=== PATIENT | female | born 1975 | race Caucasian/White ===

== ENCOUNTER 2017-04-02 22:39 | Emergency (ER) | payer SELFPAY ==
[~2017-04-02] VITALS: Ht 160 cm; Wt 70.2 kg
[2017-04-02] MEDS ORDERED: THIAMINE 200 MG/2 ML VIAL. IV ONE (23:00)
[2017-04-02] MEDS ORDERED: IV NORMAL SALINE 1,000ML 1,000 ML ONE (23:00)
[2017-04-02] MEDS ORDERED: MVI, ADULT NO.4 WITH VIT K 10 ML, FOLIC ACID SYRINGE for ER 1 MG, THIAMINE 100 MG in IV... IV SCH ×4 (23:00)
[2017-04-02] MEDS ORDERED: FOLIC ACID 5 MG/ML SYRINGE for ER IV ONE (23:01)
[2017-04-02] MEDS ORDERED: MVI, ADULT NO.4 WITH VIT K 10 ML VIAL IV ONE (23:01)
[2017-04-02] MEDS ORDERED: ONDANSETRON PF 4 MG/2 ML VIAL. IV ONE (23:15)
[2017-04-02 23:20] LABS: BASO # 0.1 x10^3/uL (0.0-0.2); BASO % 1 % (0-3); EOS # 0.2 x10^3/uL (0.0-0.7); EOS % 2 % (0-3); HEMATOCRIT 34.6 % (36.0-47.0); HEMOGLOBIN 12.3 g/dL (12.0-15.5); LYMPH # 2.3 x10^3/uL (1.0-4.8); LYMPH % 32 % (24-48); MEAN CORPUSCULAR HEMOGLOBIN 36 pg (25-35); MEAN CORPUSCULAR HGB CONC 35 g/dL (31-37); MEAN CORPUSCULAR VOLUME 102 fL (79-100); MONO # 0.5 x10^3/uL (0.0-1.1); MONO % 8 % (0-9); NEUT # 4.1 x10^3uL (1.8-7.7); NEUT % 57 % (31-73); PLATELET COUNT 242 x10^3/uL (140-400); RED BLOOD COUNT 3.41 x10^6/uL (3.50-5.40); RED CELL DISTRIBUTION WIDTH 13.6 % (11.5-14.5); WHITE BLOOD COUNT 7.1 x10^3/uL (4.0-11.0)
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
[2017-04-02 23:26] LABS: ALBUMIN 3.3 g/dL (3.4-5.0); CALCIUM 8.5 mg/dL (8.5-10.1); CREATININE 0.6 mg/dL (0.6-1.0); DIRECT BILIRUBIN 0.1 mg/dL (0.0-0.2); GFR 110.2; MAGNESIUM 1.6 mg/dL (1.8-2.4); POTASSIUM 3.8 mmol/L (3.5-5.1); TOTAL BILIRUBIN 0.2 mg/dL (0.2-1.0); TOTAL PROTEIN 6.6 g/dL (6.4-8.2)
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
[2017-04-02] MEDS ORDERED: ACET325T9 PO (23:44)
[2017-04-02] MEDS ORDERED: NAPR275T59 PO (23:44)
[2017-04-02 23:50] VITALS: BP 127/93
[2017-04-03] MEDS ORDERED: ACETAMINOPHEN 500 MG TABLET PO ONE (00:04)
[2017-04-03] MEDS ORDERED: ACETAMINOPHEN 325 MG TABLET PO ONE (00:15)
[2017-04-03 00:46] LABS: BARBITURATES NEG (NEG); BENZODIAZEPINES POS (NEG); CANNABINOIDS NEG (NEG); COCAINE NEG (NEG); METHADONE NEG (NEG); OPIATES NEG (NEG); PHENCYCLIDINE NEG (NEG)
[2017-04-03 00:47] LABS: AMPHETAMINE/METHAMPHETAMINE NEG (NEG)
== END 2017-04-03 00:02 | disposition home or self-care (01) ==
LOC: ER 22:39
DX: S00.83XA Contusion of other part of head, initial encounter (principal); S00.03XA Contusion of scalp, initial encounter; S10.93XA Contusion of unspecified part of neck, initial encounter; F10.20 Alcohol dependence, uncomplicated; F17.210 Nicotine dependence, cigarettes, uncomplicated; Y04.0XXA Assault by unarmed brawl or fight, initial encounter; Y93.89 Activity, other specified; Y99.8 Other external cause status; Y92.89 Other specified places as the place of occurrence of the external cause
CPT/HCPCS: 36415; 70450; 70486; 72125; 80048; 80076; 80307; 83735; 84702; 85025; 96365; 96375; 99285; G0480; J2405; G0479; J7030

== ENCOUNTER 2021-01-30 10:38 | Emergency (ER) | payer MEDICAID ==
[~2021-01-30] VITALS: Ht 175.3 cm; Wt 77.1 kg
[~2021-01-30 10:38] MED LIST: ACET325T9 PO; NAPR275T59 PO
[2021-01-30] MEDS ORDERED: IV NORMAL SALINE 1,000ML 1,000 ML IV ONE (11:15)
[2021-01-30] MEDS ORDERED: IOHEXOL 300 MG/ML 75 ML VIAL. IV ONE (11:15)
[2021-01-30] MEDS ORDERED: ONDANSETRON PF 4 MG/2 ML VIAL. IVP ONE (11:15)
[2021-01-30] MEDS ORDERED: MORPHINE SULFATE 4 MG/ML DISP.SYRIN. IV ONE (11:15)
[2021-01-30] MEDS ORDERED: CONTRAST GIVEN. MC PRN (11:30)
[2021-01-30 11:48] LABS: BASO # 0.1 x10^3/uL (0.0-0.2); BASO % 0 % (0-3); EOS # 0.1 x10^3/uL (0.0-0.7); EOS % 1 % (0-3); HEMATOCRIT 45.6 % (36.0-47.0); HEMOGLOBIN 15.4 g/dL (12.0-15.5); LYMPH % 5 % (24-48); MEAN CORPUSCULAR HEMOGLOBIN 33 pg (25-35); MEAN CORPUSCULAR HGB CONC 34 g/dL (31-37); MEAN CORPUSCULAR VOLUME 97 fL (79-100); MONO # 0.6 x10^3/uL (0.0-1.1); MONO % 3 % (0-9); NEUT # 18.8 x10^3uL (1.8-7.7); NEUT % 91 % (31-73); PLATELET COUNT 235 x10^3/uL (140-400); RED BLOOD COUNT 4.71 x10^6/uL (3.50-5.40); RED CELL DISTRIBUTION WIDTH 14.2 % (11.5-14.5); WHITE BLOOD COUNT 20.6 x10^3/uL (4.0-11.0)
[2021-01-30 12:09] LABS: ALBUMIN 4.3 g/dL (3.4-5.0); ALBUMIN/GLOBULIN RATIO 1.1 (1.0-1.7); CALCIUM 9.1 mg/dL (8.5-10.1); CREATININE 1.1 mg/dL (0.6-1.0); GFR 53.7; TOTAL BILIRUBIN 0.9 mg/dL (0.2-1.0); TOTAL PROTEIN 8.1 g/dL (6.4-8.2)
--- NOTE | 2021-01-30 12:14 | RAD ---
CT ABDOMEN+PELVIS W History: epigastric abdominal pain Comparison: None. Technique: After administration of intravenous contrast, helical CT of the abdomen and pelvis was per formed from the lung bases through the ischial tuberosities. Coronal and sagittal reconstructions wer e obtained. 75 mL of intravenous contrast were used. One or more of the following dose reduction tech niques were utilized: Automated exposure control (AEC), Adjustment of mA and/or kV according to patie nt size, Use of iterative reconstruction technique such as ASiR, CT scan done according to ALARA and image gently/image wisely Abdomen Findings: The visualized lung bases are clear. Marked wall thickening of the gastric antrum with mild inflammation in the surrounding fat. Multiple foci of adjacent extraluminal gas. The liver, gallbladder, pancreas, spleen, and bilateral adrenal glands are normal. Symmetric renal enhancement. There is no focal renal mass. There is no hydronephrosis. The visualized loops of small bowel are normal. The visualized loops of large bowel are normal. There is no evidence of bowel obstruction. Appendix is not seen. There is no mesenteric or retroperitoneal adenopathy. The abdominal aorta is normal in caliber. Pelvis Findings: Urinary bladder is decompressed. Uterus is present. Right adnexal 3.3 x 3.5 cm mass with regions of m acroscopic fat. No pelvic free fluid. There is no pelvic or inguinal adenopathy. There is no acute bony abnormality. IMPRESSION: 1. Significant wall thickening of the gastric antrum with surrounding inflammation consistent with ga stritis. Multiple foci of adjacent free air, raising possibility of perforated gastric ulcer. 2. Right adnexal 3.5 cm dermoid. FOR INTERNAL CODING PURPOSES Critical result: Findings discussed with Dr. Castro at 01/30/2021 12:09 PM. RESULT CODE: (C) Electronically signed by: Stef Kaminski MD (01/30/2021 12:11 PM) [id number]
[2021-01-30] MEDS ORDERED: HYDROmorphone PF 1 MG/ML DISP.SYRIN IVP ONE ×2 (12:15→15:45)
[2021-01-30] MEDS ORDERED: PANTOPRAZOLE IV 40 MG VIAL. IVP ONE (12:15)
[2021-01-30 12:18] LABS: POTASSIUM 2.9 mmol/L (3.5-5.1)
--- NOTE | 2021-01-30 12:25 | PHYS DOC ---
Past History Past Medical History: Alcoholism, Other Additional Past Medical Histor: plaque psoriasis Past Surgical History: No Surgical History Smoking: Cigarettes Alcohol Use: Heavy Additional Alcohol Information: daily Drug Use: None General Adult EDM: Chief Complaint: ABDOMINAL PAIN HPI: HPI: 46-year-old female presents with epigastric abdominal pain. She has been having epigastric pain for the last couple of days. It is much worse today so the patient came in for evaluation. The pain is a 9/10 cramping sensation with sharp peaks 9 out of 10. She is also had some vomiting but denies diarrhea. She is not felt feverish. No history of previous abdominal surgeries. Review of Systems: Review of Systems: Constitutional: Denies fever or chills Eyes: Denies change in visual acuity HENT: Denies nasal congestion or sore throat Respiratory: Denies cough or shortness of breath Cardiovascular: Denies chest pain or edema GI: Epigastric abdominal pain, nausea, vomiting. Denies bloody stools or diarrhea : Denies dysuria Musculoskeletal: Denies back pain or joint pain Integument: Denies rash Neurologic: Denies headache, focal weakness or sensory changes Endocrine: Denies polyuria or polydipsia Lymphatic: Denies swollen glands Psychiatric: Denies depression or anxiety Current Medications: Current Meds: Current Medications Medications (Trade) Dose Ordered Sig/[facility] Start Time Stop Time Status Last Admin Dose Admin Hydromorphone HCl (Dilaudid) 1 mg 1X ONCE 01/30/21 12:15 01/30/21 12:16 UNV Info (Do NOT chart on this entry -- for MONITORING) 1 each PRN DAILY PRN 01/30/21 11:30 02/01/21 11:29 Iohexol (Omnipaque 300 Mg/ml) 75 ml 1X ONCE 01/30/21 11:15 01/30/21 11:18 DC 01/30/21 11:27 75 ML Morphine Sulfate (Morphine 4mg Syringe) 4 mg 1X ONCE 01/30/21 11:15 01/30/21 11:16 DC 01/30/21 12:04 4 MG Ondansetron HCl (Zofran) 4 mg 1X ONCE 01/30/21 11:15 01/30/21 11:16 DC 01/30/21 12:04 4 MG Pantoprazole Sodium (Protonix Vial) 80 mg 1X ONCE 01/30/21 12:15 01/30/21 12:16 UNV Sodium Chloride 1,000 ml @ 1,000 mls/hr 1X ONCE 01/30/21 11:15 01/30/21 12:14 DC 01/30/21 11:23 1,000 MLS/HR Allergies: Allergies: Allergies Coded Allergies Type Severity Reaction Last Updated Verified No Known Drug Allergies 04/02/17 No Physical Exam: PE: Constitutional: Well developed, well nourished, no acute distress, non-toxic appearance. [] HENT: Normocephalic, atraumatic, bilateral external ears normal, oropharynx moist, no oral exudates, nose normal. [] Eyes: PERRLA, EOMI, conjunctiva normal, no discharge. [] Neck: Normal range of motion, no tenderness, supple, no stridor. [] Cardiovascular:Heart rate regular rhythm, no murmur [] Lungs & Thorax: Bilateral breath sounds clear to auscultation [] Abdomen: Bowel sounds normal, soft, no tenderness, no masses, no pulsatile masses. [] Skin: Warm, dry, no erythema, no rash. [] Back: No tenderness, no CVA tenderness. [] Extremities: No tenderness, no cyanosis, no clubbing, ROM intact, no edema. [] Neurologic: Alert and oriented X 3, normal motor function, normal sensory function, no focal deficits noted. [] Psychologic: Affect normal, judgement normal, mood normal. [] Current Patient Data: Labs: Laboratory Tests Test 01/30/21 11:20 White Blood Count 20.6 x10^3/uL (4.0-11.0) H Red Blood Count 4.71 x10^6/uL (3.50-5.40) Hemoglobin 15.4 g/dL (12.0-15.5) Hematocrit 45.6 % (36.0-47.0) Mean Corpuscular Volume 97 fL (79-100) Mean Corpuscular Hemoglobin 33 pg (25-35) Mean Corpuscular Hemoglobin Concent 34 g/dL (31-37) Red Cell Distribution Width 14.2 % (11.5-14.5) Platelet Count 235 x10^3/uL (140-400) Neutrophils (%) (Auto) 91 % (31-73) H Lymphocytes (%) (Auto) 5 % (24-48) L Monocytes (%) (Auto) 3 % (0-9) Eosinophils (%) (Auto) 1 % (0-3) Basophils (%) (Auto) 0 % (0-3) Neutrophils # (Auto) 18.8 x10^3uL (1.8-7.7) H Lymphocytes # (Auto) 1.0 x10^3/uL (1.0-4.8) Monocytes # (Auto) 0.6 x10^3/uL (0.0-1.1) Eosinophils # (Auto) 0.1 x10^3/uL (0.0-0.7) Basophils # (Auto) 0.1 x10^3/uL (0.0-0.2) Platelet Estimate Pending Lipase 122 U/L (73-393) Vital Signs: Vital Signs Date Time Temp Pulse Resp B/P (MAP) Pulse Ox O2 Delivery O2 Flow Rate FiO2 01/30/21 12:04 16 01/30/21 10:49 97.5 106 138/97 99 Room Air EKG: EKG: [] Radiology/Procedures: Radiology/Procedures: [] Heart Score: C/O Chest Pain: N/A Risk Factors: Risk Factors: DM, Current or recent (<one month) smoker, HTN, HLP, family history of CAD, obesity. Risk Scores: Score 0 - 3: 2.5% MACE over next 6 weeks - Discharge Home Score 4 - 6: 20.3% MACE over next 6 weeks - Admit for Clinical Observation Score 7 - 10: 72.7% MACE over next 6 weeks - Early Invasive Strategies Course & Med Decision Making: Course & Med Decision Making Pertinent Labs and Imaging studies reviewed. (See chart for details) The patient has a white count of 20.6. Her CT scan shows significant inflammation of the stomach with free air suggesting perforated gastric ulcer. I have ordered for 80 mg of Protonix IV. I informed the patient she need to be transferred to the hospital with surgery. She was okay with [facility]. I spoke with the general surgeon, Dr. Eller and made him aware of the patient. He will see the patient when she is transferred. I spoke with Dr. Martinez, the hospitalist and he has accepted the patient for transfer and admission to [facility]. [] Dragon Disclaimer: Dragon Disclaimer: This electronic medical record was generated, in whole or in part, using a voice recognition dictation system. Departure Departure: Impression: Primary Impression: Perforated gastric ulcer Qualified Codes: K25.1 - Acute gastric ulcer with perforation Disposition: 02 SHORT TERM HOSPITAL Condition: GUARDED Referrals: PCP,NO (PCP) CANDELARIO CRUZ DO Jan 30, 2021 12:25
[2021-01-30 12:36] LABS: BILIRUBIN,URINE SMALL (NEG); CLARITY,URINE HAZY; COLOR,URINE AMBER; GLUCOSE,URINE NEG (NEG); NITRITE,URINE NEG (NEG); UROBILINOGEN,URINE 0.2 mg/dL (0.2 mg/dL)
[2021-01-30 12:37] LABS: BACTERIA,URINE FEW /HPF (0-FEW); SQUAMOUS EPITHELIAL CELL,UR MOD /LPF; WBC,URINE RARE /HPF (0-4)
[2021-01-30] MEDS ORDERED: NICOTINE 21MG PATCH. TD ONE (13:15)
[2021-01-30 13:28] VITALS: BP 115/74
[2021-01-30 14:06] LABS: % BANDS 28 % (0-9); % EOS 1 % (0-5); % LYMPHS 7 % (24-48); % METAS 2 % (0-0); % MONOS 3 % (0-10); % SEGS 59 % (35-66)
[2021-01-30 14:07] LABS: PLT ESTIMATE ADEQUATE (ADEQUATE)
[2021-01-30] MEDS ORDERED: POTASSIUM CHLORIDE 20 MEQ TABLET.ER. PO ONE (14:45)
[2021-01-30] MEDS ORDERED: POTASSIUM CHLORIDE 20MEQ 100 ML IV SCH (15:45)
== END 2021-01-30 16:29 | disposition short-term general hospital (02) ==
LOC: ER 10:38
DX: K25.1 Acute gastric ulcer with perforation (principal); F17.210 Nicotine dependence, cigarettes, uncomplicated; F10.20 Alcohol dependence, uncomplicated; Y90.9 Presence of alcohol in blood, level not specified
CPT/HCPCS: 36415; 74177; 80053; 81001; 83690; 85007; 85025; 96361; 96374; 96375; 96376; 99285; C9113; J1170; J2270; J2405; J7030; Q9967